=== PATIENT | female | born 1995 | race Caucasian/White ===

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

== ENCOUNTER 2017-01-22 04:04 | Emergency (ER) | payer MEDICAID ==
[2017-01-22 05:03] LABS: HCG SERUM NEGATIVE (NEGATIVE)
[2017-01-22 06:59] LABS: HCG URINE NEGATIVE (NEGATIVE)
[2017-01-22 07:08] LABS: APPEARANCE CLEAR (CLEAR); BILIRUBIN NEGATIVE (NEGATIVE); COLOR STRAW (YELLOW); GLUCOSE NEGATIVE (NEGATIVE); KETONE NEGATIVE (NEGATIVE); NITRITE NEGATIVE (NEGATIVE); PROTEIN NEGATIVE (NEGATIVE); SPECIFIC GRAVITY 1.005 (1.005-1.020); UROBILINOGEN NORMAL (NORMAL)
== END 2017-01-22 07:02 | disposition home or self-care (01) ==
LOC: D.ER 04:04
PROVIDERS: Emergency Medicine
DX: T76.21XA Adult sexual abuse, suspected, initial encounter (principal); F17.200 Nicotine dependence, unspecified, uncomplicated

== ENCOUNTER 2017-02-10 22:32 | Emergency (ER) | payer MEDICAID ==
[2017-02-10 23:24] LABS: APPEARANCE HAZY (CLEAR); BILIRUBIN NEGATIVE (NEGATIVE); COLOR YELLOW (YELLOW); GLUCOSE NEGATIVE (NEGATIVE); KETONE SMALL mg/dL (NEGATIVE); NITRITE NEGATIVE (NEGATIVE); PROTEIN NEGATIVE (NEGATIVE); SPECIFIC GRAVITY 1.015 (1.005-1.020); UROBILINOGEN NORMAL (NORMAL)
[2017-02-10 23:25] LABS: HCG URINE POSITIVE (NEGATIVE)
== END 2017-02-11 00:20 | disposition home or self-care (01) ==
LOC: D.ER 22:32
PROVIDERS: Nurse Practitioner Family
DX: Z32.01 Encounter for pregnancy test, result positive (principal)

== ENCOUNTER 2020-05-22 00:53 | Emergency (ER) | payer MEDICAID ==
[~2020-05-22] VITALS: Ht 175.3 cm; Wt 67.3 kg
[2020-05-22 01:07] VITALS: Ht 175.3 cm; Wt 67.3 kg
[2020-05-22] MEDS ORDERED: PHENERGAN25 M1 PO (01:10)
[2020-05-22] MEDS ORDERED: PRENAVITE1 TAB PO (01:11)
[2020-05-22 01:35] LABS: BASOPHILS 0.2 % (0-2); HEMATOCRIT 34.4 % (36.0-48.0); HEMOGLOBIN 11.6 g/dL (12-16); IMMATURE GRANULOCYTES 0.9 % (0-5); LYMPHOCYTE ABS# 2.47 10x3/uL (1.18-3.74); LYMPHOCYTES 24.3 % (15-50); MCH 30.1 pg (26.0-34.0); MCHC 33.7 g/dL (31.0-37.0); MCV 89.4 fL (80.0-100.0); MEAN PLATELET VOLUME 9.2 fL (7.4-10.4); MONOCYTES 9.7 % (2-11); NEUTROPHILS 62.9 % (40-80); PLATELET COUNT 186 10x3/uL (130-400); RBC 3.85 10x6/uL (4.00-5.40); RDW 14.7 % (11.5-14.5); WBC 10.2 10x3/uL (4.8-10.8)
[2020-05-22 01:41] LABS: HCG SERUM POSITIVE (NEGATIVE)
[2020-05-22 01:47] LABS: CALC OSMOLALITY 269 mosm/kg (275-300); CALCIUM 8.4 mg/dL (8.5-10.1); CARBON DIOXIDE 24.2 mmol/L (21.0-32.0); CHLORIDE - SERUM 105 mmol/L (98-107); CREATININE - SERUM 0.5 mg/dL (0.6-1.3); GLUCOSE 99 mg/dL (74-106); POTASSIUM - SERUM 3.5 mmol/L (3.5-5.1); SODIUM 136 mmol/L (136-145); UREA NITROGEN 6 mg/dL (7-18); eGFR NON AFRICAN AMERICAN > 90 mL/min (90-120)
[2020-05-22 01:56] LABS: UDS - AMPHET NEGATIVE QUAL (NEGATIVE); UDS - BARB NEGATIVE QUAL (NEGATIVE); UDS - BENZO NEGATIVE QUAL (NEGATIVE); UDS - COCAINE NEGATIVE QUAL (NEGATIVE); UDS - OPIATE NEGATIVE QUAL (NEGATIVE); UDS - PCP NEGATIVE QUAL (NEGATIVE); UDS - THC NEGATIVE QUAL (NEGATIVE)
[2020-05-22 01:59] LABS: BILIRUBIN NEGATIVE (NEGATIVE); KETONE NEGATIVE (NEGATIVE); NITRITE NEGATIVE (NEGATIVE); UROBILINOGEN NORMAL mg/dL (< 2); WHITE CELLS - URINE 0-5 HPF (0-4)
[2020-05-22 02:00] LABS: AMORPHOUS SEDIMENT >1+ LPF (NONE SEEN)
[2020-05-22 02:04] LABS: ALBUMIN 2.9 g/dL (3.4-5.0); ALKALINE PHOSPHATASE 67 U/L (30-120); ALT (SGPT) 14 U/L (10-68); AMYLASE - SERUM 75 U/L (25-115); BILIRUBIN - TOTAL 0.16 mg/dL (0.2-1.3); CREATINE KINASE 31 UL (21-215); LIPASE 98 U/L (73-393); MAGNESIUM - SERUM 1.6 mg/dL (1.8-2.4); PROTEIN - SERUM 6.6 g/dL (6.4-8.2); TROPONIN-I < 0.017 ng/mL (0.000-0.060)
--- NOTE | 2020-05-22 02:13 | NUR ---
PATIENT IN HERE FOR FOR CHEST PAIN AND SHE IS AND IS VERY HAPPY ABOUT HER . SHE DENIES BEING SUICIDIAL. 1800 NUMBER GIVEN FOR FUTURE REFERENCE
[2020-05-22] MEDS ORDERED: MACROBID100 MG PO (02:42)
[2020-05-22] MEDS ORDERED: PROTONIX20 MG PO (02:42)
[2020-05-22 03:07] VITALS: BP 95/55
== END 2020-05-22 03:07 | disposition home or self-care (01) ==
LOC: D.ER 00:53
PROVIDERS: Family Medicine
DX: O23.42 Unspecified infection of urinary tract in pregnancy, second trimester (principal); Z3A.20 20 weeks gestation of pregnancy; R07.9 Chest pain, unspecified; K21.9 Gastro-esophageal reflux disease without esophagitis